=== PATIENT | female | born 1980 | race Caucasian/White ===

== ENCOUNTER 2020-05-12 14:23 | Emergency (ER) | payer BC ==
[~2020-05-12] VITALS: Ht 162.6 cm; Wt 75.0 kg
[2020-05-12] MEDS ORDERED: ACETAMINOPHEN 500 MG TABLET PO ONE (15:00)
[2020-05-12] MEDS ORDERED: LIDOCAINE 5% TRANSDERMAL PATCH TD ONE (15:00)
[2020-05-12] MEDS ORDERED: METHOCARBAMOL 500 MG TABLET PO ONE (15:00)
[2020-05-12 15:21] VITALS: BP 116/74
== END 2020-05-12 15:24 | disposition home or self-care (01) ==
LOC: EMS 14:25
DX: S39.012A Strain of muscle, fascia and tendon of lower back, initial encounter (principal); M62.830 Muscle spasm of back; Z88.6 Allergy status to analgesic agent; W01.0XXA Fall on same level from slipping, tripping and stumbling without subsequent striking against object, initial encounter; Y93.89 Activity, other specified; Y92.89 Other specified places as the place of occurrence of the external cause; Y99.8 Other external cause status